=== PATIENT | male | born 1975 | race Caucasian/White ===

== ENCOUNTER 2018-09-09 18:44 | Emergency (ER) | payer OTHER ==
[~2018-09-09] VITALS: Ht 177.8 cm; Wt 84.8 kg
[2018-09-09] MEDS ORDERED: OMEPRAZOLE40 MG PO (18:53)
[2018-09-09] MEDS ORDERED: ALLOPURINOL 30300 M1 PO (18:53)
[2018-09-09] MEDS ORDERED: MOBIC7.5 MG PO (18:53)
[2018-09-09] MEDS ORDERED: ZANAFLEX4 MG PO (19:48)
[2018-09-09] MEDS ORDERED: IBUPROFEN 800800 M1 PO (19:48)
[2018-09-09 20:10] VITALS: BP 132/82
== END 2018-09-09 20:10 | disposition home or self-care (01) ==
LOC: M.ERS 18:44
DX: S16.1XXA Strain of muscle, fascia and tendon at neck level, initial encounter (principal); S00.03XA Contusion of scalp, initial encounter; M10.9 Gout, unspecified; V89.2XXA Person injured in unspecified motor-vehicle accident, traffic, initial encounter; Y92.89 Other specified places as the place of occurrence of the external cause; Y93.89 Activity, other specified; Y99.8 Other external cause status